=== PATIENT | female | born 1990 | race Two or more races ===

== ENCOUNTER 2017-02-18 21:28 | Inpatient (IN) | payer MEDICAID ==
[2017-02-18] VITALS (22 sets, daily range): BP systolic 147–161; BP diastolic 83–94; PULSE 71–95; RESP 15
[~2017-02-18] VITALS: Ht 154.9 cm; Wt 76.0 kg
[2017-02-18] MEDS ORDERED: LACTATED RINGER'S 1000 ML INJ 1,000 ML IV PRN (22:08)
[2017-02-18] MEDS ORDERED: LACTATED RINGER'S 1000 ML INJ 1,000 ML IV SCH (22:08)
--- NOTE | 2017-02-18 22:08 | PD ---
HPI Chief Complaint Pt is a 26 yo who presents to ER c/o elevated BPs. Pt is 38 weeks and 5 days with EDC 02-27-2017 Date Seen: Feb 18, 2017 Time Seen: 22:00 Travel History International Travel<30 Days: No Contact w/Intl Traveler<30Days: No Known Affected Area: No History of Present Illness HPI Patient is a 26 yo who presents to the OB ED with c/o elevated BP. Pt is 38 weeks and 5 days based on EDC 02-27-2017. Pt receives care in [place] but last visit was 3 weeks and has been in [place] since then. Per patient, there were no concerns at that last visit. Pt states that she was shopping and decided to check her BP at the [employer] and noted systolic pressures of 150 and then 160. She has been asymptomatic the whole time, and denies headaches, vision changes or RUQ pain. She presented to the Main ER and BP was 160/100, and patient was transferred here. BP here was 150/96. We plan admission to Labor and Delivery. Previous was delivered at 34 weeks. pt states she was treated for Chlamydia this with negative SAPPHIRE. She reports active movements. no vaginal bleeding or leaking DTRs are 1-2 + and no ankle clonus. Weeks Gestation: 38 Para: 1 : 2 History Past Medical History Narrative Medical ANEMIA Medical History: Denies Significant Hx Obstetric History Obstetric History delivery at 34 weeks 2015 Past Surgical History Surgical History: No Previous Surgery Family History Family History: Negative Social History Alcohol Use: No Tobacco Use: No (quit smoking at onset of , previously 10 cigarettes/ day) Substance Abuse: No Allergies-Medications (Allergen,Severity, Reaction): Coded Allergies: pineapple (Verified Allergy, Unknown, 02/18/17) Home Meds Reported Medications [Iron] No Conflict Check, 1 TAB PO BID 02/18/17 [ Vitamin] No Conflict Check, 1 TAB PO DAILY 02/18/17 Docusate Sodium (Colace) 100 Mg Capsule, 1 CAP PO DAILY 02/18/17 Physical Exam Narrative GENERAL: Well-nourished, well-developed patient. SKIN: Warm and dry. HEAD: Normocephalic and atraumatic. EYES: No scleral icterus. No injection or drainage. ENT: No nasal drainage noted. Mucous membranes pink. Airway patent. NECK: Supple, trachea midline. No JVD. CARDIOVASCULAR: Regular rate and rhythm without murmurs, gallops, or rubs. RESPIRATORY: Breath sounds equal bilaterally. No accessory muscle use. BREASTS: Bilateral exam showed no masses , no retractions, no nipple discharge. ABDOMEN/GI: Abdomen soft, non-tender, bowel sounds present, no rebound, no guarding Gravid to [38] weeks size Fundal Height: [38] GENITOURINARY: External Genitalia: intact and normal in appearance BUS glands: [wnl] Cervix: [soft, midline] Dilatation: [1-2cm] Effacement: [80%] Station: [-2] Presentation: [vertex] Membranes: [intact] Uterine Contractions: [irregular] FHT's: Category: [1] Baseline: [120s] Reactive: [-] Variability: [moderate] Decels: [noneDTRs at patella 1-2, no ankle clonus] EXTREMITIES: No cyanosis or edema. BACK: Nontender without obvious deformity. No CVA tenderness. NEUROLOGICAL: Awake and alert. Motor and sensory grossly within normal limits. Five out of 5 muscle strength in all muscle groups. Normal speech. Data Data Vital Signs Reviewed: Yes MDM Plan Admit to L&D 26 yo aat 38 weeks and 5 days. We will check PIH labs. Plan admission for IOL for pre-eclampsia at term. Labetalol 20mg IV x 1 Unknown GBS Diagnosis Diagnosis: Primary Impression: Admission for laboratory examination Additional Impressions: Gestational hypertension 38 weeks gestation of Montez Tay MD Feb 18, 2017 22:08
[2017-02-18] MEDS ORDERED: PENICILLIN G POTASSIUM INJ 5,000,000 UNITS in SODIUM CHLORIDE 0.9% INJ 100 ML IV ONE (22:15)
[2017-02-18] MEDS ORDERED: ONDANSETRON HCL 4 MG/2 ML VIAL IV PUSH PRN (22:15)
[2017-02-18] MEDS ORDERED: SODIUM CHLORIDE 0.9% FLUSH 10 ML FLUSH IV FLUSH PRN (22:15)
[2017-02-18] MEDS ORDERED: MINERAL OIL 10 ML VIAL TOPICAL PRN (22:15)
[2017-02-18] MEDS ORDERED: LIDOCAINE HCL 1% 50 ML VIAL INFIL PRN (22:15)
[2017-02-18] MEDS ORDERED: SODIUM CHLORID 0.9% 500 ML INJ 500 ML IV PRN (22:15)
[2017-02-18] MEDS ORDERED: OXYTOCIN 30 UNITS-500ML PREMIX 500 ML IV ONE (22:15)
[2017-02-18] MEDS ORDERED: LIDOCAINE HCL 1% 50 ML VIAL I-DERMAL PRN (22:15)
[2017-02-18] MEDS ORDERED: SODIUM CHLOR 0.9% 1000 ML INJ 1,000 ML IV PRN (22:28)
[2017-02-18] MEDS ORDERED: Iron PO (22:31)
[2017-02-18] MEDS ORDERED: Prenatal Vitamin PO (22:31)
[2017-02-18] MEDS ORDERED: COLA100C5 PO (22:31)
[2017-02-18] MEDS ORDERED: LABETALOL HCL 100 MG/20 ML VIAL ONE ×2 (22:40→22:42)
[2017-02-18] MEDS: LACTATED RINGER'S 1000 ML INJ 1,000 ML IV SCH (22:45)
[2017-02-18 22:52] LABS: BILIRUBIN, URINE NEG (NEG); BLOOD, URINE NEG (NEG); GLUCOSE,URINE NEG (NEG); HYALINE CAST, URINE 1 /lpf (RARE); KETONE, URINE NEG (NEG); NITRITE,URINE NEG (NEG); SQUAMOUS EPITHELIAL CELL URINE 2 /hpf (0-5); URINE COLOR LIGHT-YELLOW (YELLW/STRAW); URINE LEUKOCYTE ESTERASE LARGE (NEG)
--- NOTE | 2017-02-18 22:53 | HHI.HP ---
HPI Chief Complaint 38 weeks and 5 days IUP Pre-eclampsia Date Seen: Feb 18, 2017 Time Seen: 22:00 Travel History International Travel<30 Days: No Contact w/Intl Traveler<30Days: No Known Affected Area: No History of Present Illness HPI Patient is a 26 yo who presents to the OB ED with c/o elevated BP. Pt is 38 weeks and 5 days based on EDC 02-27-2017. Pt receives care in [place] but last visit was 3 weeks and has been in [place] since then. Per patient, there were no concerns at that last visit. Pt states that she was shopping and decided to check her BP at the [employer] and noted systolic pressures of 150 and then 160. She has been asymptomatic the whole time, and denies headaches, vision changes or RUQ pain. She presented to the Main ER and BP was 160/100, and patient was transferred here. BP here was 150/96. We plan admission to Labor and Delivery. Previous was delivered at 34 weeks. pt states she was treated for Chlamydia this with negative SAPPHIRE. She reports active movements. no vaginal bleeding or leaking DTRs are 1-2 + and no ankle clonus. Weeks Gestation: 38 Para: 1 : 2 History Past Medical History Narrative Medical Anemia Obstetric History Obstetric History delivery at 34 weeks 2015 Past Surgical History Surgical History: No Previous Surgery Family History Family History: Negative Social History Alcohol Use: No Tobacco Use: No (quir smoking at onset of pregmnancy.) Substance Abuse: No Allergies-Medications (Allergen,Severity, Reaction): Coded Allergies: pineapple (Verified Allergy, Unknown, 02/18/17) Home Meds Reported Medications [Iron] No Conflict Check, 1 TAB PO BID 02/18/17 [ Vitamin] No Conflict Check, 1 TAB PO DAILY 02/18/17 Docusate Sodium (Colace) 100 Mg Capsule, 1 CAP PO DAILY 02/18/17 Review of Systems Except as stated in HPI: all other systems reviewed are Neg Physical Exam Narrative GENERAL: Well-nourished, well-developed patient. SKIN: Warm and dry. HEAD: Normocephalic and atraumatic. EYES: No scleral icterus. No injection or drainage. ENT: No nasal drainage noted. Mucous membranes pink. Airway patent. NECK: Supple, trachea midline. No JVD. CARDIOVASCULAR: Regular rate and rhythm without murmurs, gallops, or rubs. RESPIRATORY: Breath sounds equal bilaterally. No accessory muscle use. BREASTS: Bilateral exam showed no masses , no retractions, no nipple discharge. ABDOMEN/GI: Abdomen soft, non-tender, bowel sounds present, no rebound, no guarding Gravid to [38] weeks size Fundal Height: [38] GENITOURINARY: External Genitalia: intact and normal in appearance BUS glands: [wnl] Cervix: [soft, midline] Dilatation: [1-2cm] Effacement: [80%] Station: [-2] Presentation: [vertex] Membranes: [intact] Uterine Contractions: [irregular-] FHT's: Category: [1] Baseline: [120s] Reactive: [-] Variability: [moderate] Decels: [none] EXTREMITIES: No cyanosis or edema. BACK: Nontender without obvious deformity. No CVA tenderness. NEUROLOGICAL: Awake and alert. Motor and sensory grossly within normal limits. Five out of 5 muscle strength in all muscle groups. Normal speech. DTRs 1-2, no ankle clonus Caprini VTE Risk Assessment Caprini VTE Risk Assessment: No/Low Risk (score <= 1) Caprini Risk Assessment Model Point Value = 1 Point Value = 2 Point Value = 3 Point Value = 5 Age 41-60 Minor surgery BMI > 25 kg/m2 Swollen legs Varicose veins or History of unexplained or recurrent spontaneous Oral contraceptives or hormone replacement Sepsis (< 1 month) Serious lung disease, including pneumonia (< 1 month) Abnormal pulmonary function Acute myocardial infarction Congestive heart failure (< 1 month) History of inflammatory bowel disease Medical patient at bed rest Age 61-74 Arthroscopic surgery Major open surgery (> 45 min) Laparoscopic surgery (> 45 min) Malignancy Confined to bed (> 72 hours) Immobilizing plaster cast Central venous access Age >= 75 History of VTE Family history of VTE Factor V Leiden Prothrombin [id number] Lupus anticoagulant Anticardiolipin antibodies Elevated serum homocysteine Heparin-induced thrombocytopenia Other congenital or acquired thrombophilia Stroke (< 1 month) Elective arthroplasty Hip, pelvis, or leg fracture Acute spinal cord injury (< 1 month) Prophylaxis Regimen Total Risk Factor Score Risk Level Prophylaxis Regimen 0-1 Low Early ambulation 2 Moderate Order ONE of the following: *Sequential Compression Device (SCD) *Heparin 5000 units SQ BID 3-4 Higher Order ONE of the following medications: *Heparin 5000 units SQ TID *Enoxaparin/Lovenox 40 mg SQ daily (WT < 150 kg, CrCl > 30 mL/min) *Enoxaparin/Lovenox 30 mg SQ daily (WT < 150 kg, CrCl > 10-29 mL/min) *Enoxaparin/Lovenox 30 mg SQ BID (WT < 150 kg, CrCl > 30 mL/min) AND/OR *Sequential Compression Device (SCD) 5 or more Highest Order ONE of the following medications: *Heparin 5000 units SQ TID (Preferred with Epidurals) *Enoxaparin/Lovenox 40 mg SQ daily (WT < 150 kg, CrCl > 30 mL/min) *Enoxaparin/Lovenox 30 mg SQ daily (WT < 150 kg, CrCl > 10-29 mL/min) *Enoxaparin/Lovenox 30 mg SQ BID (WT < 150 kg, CrCl > 30 mL/min) AND *Sequential Compression Device (SCD) Data Data Vital Signs Reviewed: Yes Orders Orders Admit To Inpatient (02/18/17 ) Code Status (02/18/17 22:08) Vital Signs (Adult) Q5MX4,Q15MX4,Q30MX2,Q1H (02/18/17 22:08) Activity Bed Rest (02/18/17 22:08) Intake + Output Q1H (02/18/17 22:08) Notify Parameters (02/18/17 22:08) Heart CONTINUOUS (02/18/17 22:08) Urinary Catheter Management KIMMIE.Q8H (02/18/17 22:08) ^ Check Deep Tendon Reflexes Q1H (02/18/17 22:08) Diet Liquid (02/19/17 Breakfast) Lactated Ringer's 1000 Ml Inj (Lr 1000 M (02/18/17 22:08) Sodium Chloride 0.9% Flush (Ns Flush) (02/18/17 22:15) Sodium Chloride 0.9% Flush (Ns Flush) (02/19/17 09:00) Cbc No Diff, Includes Plts (02/18/17 22:08) Comprehensive Metabolic Panel (02/18/17 22:08) Uric Acid (02/18/17 22:08) Urinalysis - C+S If Indicated (02/18/17 22:08) Inpatient Certification (02/18/17 ) Rubella Immune Status (02/18/17 22:08) Hepatitis Profile (02/18/17 22:08) Rapid Plasma Regin (Rpr) W Ttr (02/18/17 22:08) Admit To Inpatient (02/18/17 ) Vital Signs (Adult) .Per protocol (02/18/17 22:08) Heart (02/18/17 22:08) Amnioinfusion (02/18/17 22:08) Lactated Ringer's 1000 Ml Inj (Lr 1000 M (02/18/17 22:08) Lactated Ringer's 1000 Ml Inj (Lr 1000 M (02/18/17 22:08) Sodium Chlorid 0.9% 500 Ml Inj (Ns 500 M (02/18/17 22:15) Sodium Chlor 0.9% 1000 Ml Inj (Ns 1000 M (02/18/17 22:28) Lidocaine 1% Inj (50 Ml) (Xylocaine 1% I (02/18/17 22:15) Ondansetron Inj (Zofran Inj) (02/18/17 22:15) Fentanyl Inj (Fentanyl Inj) (02/18/17 22:15) Fentanyl Inj (Fentanyl Inj) (02/18/17 22:15) Penicillin G Potassium Inj (Pfizerpen-G (02/18/17 22:15) Penicillin G Potassium Inj (Pfizerpen-G (02/19/17 03:00) Abo/Rh Blood Type (02/18/17 22:08) Drug Screen, Random Urine (02/18/17 22:08) Type And Screen (02/18/17 22:08) Resp Oxygen Non Rebreathe Mask (02/18/17 ) ^ Epidural / Intrathecal Infus (02/18/17 22:08) Oxytocin 30 Units-500ml Premix (Pitocin (02/18/17 22:15) Lidocaine 1% Inj (50 Ml) (Xylocaine 1% I (02/18/17 22:15) Light Mineral Oil (Muri-Lube Oil) (02/18/17 22:15) Inpatient Certification (02/18/17 ) Group B Strep Pcr (Rapid) (02/18/17 22:08) Protein Creat Ratio, Random Ur (02/18/17 22:08) Ob (2e) Additional Admit Info (02/18/17 22:24) Labetalol Inj (Trandate Inj) (02/18/17 22:40) Labetalol Inj (Trandate Inj) (02/18/17 22:42) Labs Laboratory Tests Test 02/18/17 22:30 Assessment/Plan Assessment and Plan 26 yo G 1 P0101 at 38 weeks and 5 days. Admit to L&D. Gestational HTN, no urine protein. GBS unknown, will start PCN prophylaxis, pending GBS Rapid. Will draw labs. PIH labs pending Will await labs and decide mode of induction. Montez Tay MD Feb 18, 2017 22:52
[2017-02-18 23:01] LABS: HEMATOCRIT 31.4 % (35.0-46.0); HEMOGLOBIN 10.1 GM/DL (11.6-15.3); MEAN CELL VOLUME 85.9 FL (80.0-100.0); MEAN CORPUSCULAR HEMOGLOBIN 27.7 PG (27.0-34.0); MEAN CORPUSCULAR HGB CONC 32.2 % (32.0-36.0); MEAN PLATELET VOLUME 8.5 FL (7.0-11.0); PLATELET COUNT 214 TH/MM3 (150-450); RED BLOOD COUNT 3.66 MIL/MM3 (4.00-5.30); RED CELL DISTRIBUTION WIDTH 17.2 % (11.6-17.2); WHITE BLOOD COUNT 14.1 TH/MM3 (4.0-11.0)
[2017-02-18 23:06] LABS: ALBUMIN 2.8 GM/DL (3.4-5.0); AST (GOT) 15 U/L (15-37); BICARBONATE 24.7 MEQ/L (21.0-32.0); BLOOD UREA NITROGEN 6 MG/DL (7-18); CALCIUM 8.4 MG/DL (8.5-10.1); CHLORIDE 106 MEQ/L (98-107); GLOMERULAR FILTRATION RATE 152 ML/MIN (>89); GLUCOSE,RANDOM 76 MG/DL (74-106); SODIUM (NA) 140 MEQ/L (136-145)
[2017-02-18 23:07] LABS: ALT (GPT) 14 U/L (10-53)
[2017-02-18 23:09] LABS: ALKALINE PHOSPHATASE 121 U/L (45-117); TOTAL BILIRUBIN ADULT 0.2 MG/DL (0.2-1.0); TOTAL PROTEIN 6.5 GM/DL (6.4-8.2)
[2017-02-18] MEDS ORDERED: OXYTOCIN 30 UNITS-500ML PREMIX 500 ML IV SCH (23:45)
[2017-02-19] VITALS (19 sets, daily range): BP systolic 121–149; BP diastolic 62–98; PULSE 80–125; RESP 15–20; TEMP 98.1–98.8; O2SAT 97
[2017-02-19] MEDS: PENICILLIN G POTASSIUM INJ 2,500,000 UNITS in SODIUM CHLORIDE 0.9% INJ 100 ML IV SCH ×5 (03:00→18:38)
[2017-02-19] MEDS ORDERED: LABETALOL HCL 100 MG/20 ML VIAL IV ONE (03:45)
[2017-02-19] MEDS: ACETAMINOPHEN 325 MG TAB PO PRN (03:47)
[2017-02-19] MEDS: LABETALOL HCL 200 MG TAB PO SCH ×3 (06:24→22:11)
[2017-02-19] MEDS: LACTATED RINGER'S 1000 ML INJ 1,000 ML IV SCH ×2 (06:24→14:09)
[2017-02-19] MEDS: SODIUM CHLORIDE 0.9% FLUSH 10 ML FLUSH IV FLUSH SCH (07:35)
--- NOTE | 2017-02-19 08:07 | PD.LABORPN ---
Subjective Subjective Patient rates contractions as 6. Denies headaches or vision changes. Objective Vital Signs Vital Signs Date Time Temp Pulse Resp B/P (MAP) Pulse Ox O2 Delivery O2 Flow Rate FiO2 02/19/17 00:10 81 02/19/17 00:05 80 Objective Pelvic Exam: Cervix: [soft] Dilatation: [4cm] Effacement: [70%] Station: [-2] Presentation: [vertex] Membranes: [ruptured] AROM done 08:00 clear return Uterine Contractions: [q 2 minutes] Pitocin at 10mu/min FHT's: Category: [1] Baseline: [-] Reactive: [-] Variability: [120s] Decels: [none] DTRs at patella 1+. no ankle clonus. Bilateral pedal edema 2+ Weeks Gestation: 38 Gest Age Assessed Date: Feb 18, 2017 Gest Age Assessed Time: 22:00 Pt started active labor?: Yes Active labor start date: Feb 19, 2017 Active labor start time: 02:00 Medical induction of labor?: Yes Medical induction start date: Feb 18, 2017 Medical induction start time: 22:00 Artificial rupture of membrane: Yes Artificial ROM date: Feb 19, 2017 Artifical ROM time: 08:02 Assessment/Plan Assessment and Plan 26 yo at 38 weeks and 1 day. IOL for Gestational HTN PIH all wnl no proteinuria. BP 140-150/80-90s on Labetalol 200mg q 8 hourly. Continue Pitocin per protocol. 2. Unknown GBS Pt on PCN prophylaxis Montez Tay MD Feb 19, 2017 08:07
[2017-02-19] MEDS ORDERED: CALCIUM CARBONATE 500 MG CHEWABLE TAB CHEW ONE (09:00)
[2017-02-19] MEDS ORDERED: MEASLES, MUMPS, RUBELLA VACCINE 0.5 ML VIAL SQ ONE (16:00)
[2017-02-19] MEDS ORDERED: DIPHTH/TETANUS/ACEL PERTUSSIS (BOOSTER) 0.5 ML VIAL/PFS IM ONE (16:00)
[2017-02-19] MEDS ORDERED: fentaNYL 2MCG-BUPIV 0.125% INJ 100 ML ONE (16:23)
[2017-02-19] MEDS ORDERED: ePHEDrine/NS 25 MG/5 ML SYRINGE ONE (16:23)
[2017-02-19] MEDS ORDERED: LIDOCAINE HCL 1% 20 ML VIAL ONE (16:50)
[2017-02-19] MEDS ORDERED: MISOPROSTOL 200 MCG TAB ONE (17:23)
--- NOTE | 2017-02-19 17:37 | PD.OB.DELI ---
Weeks gestation: 38 Gest age assessed date: Feb 18, 2017 Gest age assessed time: 22:00 Pt started active labor?: Yes Active labor start date: Feb 19, 2017 Active labor start time: 02:00 Medical induction of labor?: Yes Medical induction start date: Feb 18, 2017 Medical induction start time: 22:00 Artificial rupture of membrane: Yes Artificial ROM date: Feb 19, 2017 Artifical ROM time: 08:02 Anesthesia: Lidocaine pudendal block, Lidocaine local to perineum Episiotomy: None Vaginal Delivery: Normal Presentation: Occiput anterior Nuchal Cord: None Delayed cord clamping (45 sec): Yes Infant: Male Delivery date: Feb 19, 2017 Delivery time: 16:47 One Minute : 8 Five Minute : 8 Weight: 3600 Placenta: Manual removal, Uterus explored + Estimated blood loss: 400 Additional Information prolonged 3 rd stage adherrent placenta manually extracted completely removed James Garcia II, MD Feb 19, 2017 17:37
[2017-02-19] MEDS ORDERED: OXYTOCIN 30 UNITS-500ML PREMIX 500 ML IV SCH (17:45)
[2017-02-19] MEDS ORDERED: WITCH HAZEL 50%/GLYCERIN 12.5% 40 PAD JAR TOPICAL PRN (17:45)
[2017-02-19] MEDS ORDERED: ACETAMINOPHEN 325 MG TAB PO PRN (17:45)
[2017-02-19] MEDS ORDERED: ZOLPIDEM TARTRATE 5 MG TAB PO PRN (17:45)
[2017-02-19] MEDS ORDERED: DOCUSATE SODIUM 50 MG/SENNA 8.6 MG TAB PO PRN (17:45)
[2017-02-19] MEDS ORDERED: ONDANSETRON ODT 4 MG TAB PO PRN (17:45)
[2017-02-19] MEDS ORDERED: oxyCODONE/ACETAMINOPHEN 5 MG/325 MG TAB PO PRN (17:45)
[2017-02-19] MEDS ORDERED: ALUMINUM/MAGNESIUM/SIMETH 30 ML CUP PO PRN (17:45)
[2017-02-19] MEDS ORDERED: BENZOCAINE 20% TOPICAL SPRAY 60 ML CAN TOPICAL PRN (17:45)
[2017-02-19] MEDS ORDERED: SODIUM CHLORIDE 0.9% FLUSH 10 ML FLUSH IV FLUSH PRN (17:45)
[2017-02-19] MEDS ORDERED: MISOPROSTOL 200 MCG TAB RECTAL ONE (18:30)
[2017-02-19] MEDS ORDERED: SODIUM CHLORIDE 0.9% FLUSH 10 ML FLUSH IV FLUSH SCH (21:00)
[2017-02-20] MEDS: IBUPROFEN 800 MG TAB PO PRN (00:23)
[2017-02-20] MEDS: LABETALOL HCL 200 MG TAB PO SCH ×2 (05:53→17:22)
[2017-02-20 07:00] LABS: HEMATOCRIT 25.1 % (35.0-46.0); HEMOGLOBIN 8.5 GM/DL (11.6-15.3); MEAN CELL VOLUME 85.8 FL (80.0-100.0); MEAN CORPUSCULAR HGB CONC 33.8 % (32.0-36.0); MEAN PLATELET VOLUME 8.6 FL (7.0-11.0); PLATELET COUNT 153 TH/MM3 (150-450); RED BLOOD COUNT 2.92 MIL/MM3 (4.00-5.30); RED CELL DISTRIBUTION WIDTH 17.3 % (11.6-17.2); WHITE BLOOD COUNT 20.7 TH/MM3 (4.0-11.0)
--- NOTE | 2017-02-20 08:30 | HHI.OB ---
Subjective Post Day: 1 Remarks Pt seen and examined this morning. day # 1 after with prolonged 3rd stage of labor, manual placental extraction, and post- hemorrhage. CBC showing Hgb 10.1 -> 8.5. Patient asymptomatic. AFVSS overnight. SBP 140s-150s on labetalol 200mg TID. Decreased lochia. Denies dysuria. No breast tenderness. She is feeding the baby via breast. Appetite good. No nausea or vomiting. Ambulating well. Denies calf pain or shortness of breath. Otherwise, she is doing well this morning and has no other concerns. Objective Vitals/I&O Vital Signs Date Time Temp Pulse Resp B/P (MAP) Pulse Ox O2 Delivery O2 Flow Rate FiO2 02/19/17 20:50 149/89 (109) 02/19/17 20:50 98.4 82 18 97 02/19/17 20:05 98.8 20 02/19/17 20:00 125 140/86 (104) 02/19/17 19:30 90 145/85 (105) 02/19/17 19:05 18 02/19/17 19:00 83 140/91 (107) 02/19/17 18:46 112 143/97 (112) 02/19/17 18:35 18 02/19/17 18:30 89 140/88 (105) 02/19/17 18:20 98.6 18 02/19/17 18:15 86 139/88 (105) 02/19/17 18:05 18 02/19/17 18:00 111 136/68 (90) 02/19/17 17:50 18 02/19/17 17:45 95 121/62 (81) 02/19/17 17:30 104 136/98 (111) Objective Remarks GENERAL: Well-nourished, well-developed patient. CARDIOVASCULAR: Regular rate and rhythm without murmurs, gallops, or rubs. RESPIRATORY: Breath sounds equal bilaterally. No accessory muscle use. ABDOMEN/GI: Abdomen soft, non-tender. Fundus: Firm, non-tender at umbilicus. GENITOURINARY: Light to moderate bleeding. EXTREMITIES: No cyanosis or edema, non-tender, without signs of DVT. Medications and IVs Current Medications Medications (Trade) Dose Ordered Sig/Cherise Route Start Time Stop Time Status Last Admin (NS Flush) 2 ml UNSCH PRN IV FLUSH 02/18/17 22:15 (NS Flush) 2 ml BID IV FLUSH 02/19/17 09:00 Lactated Ringer's 1,000 ml @ 125 mls/hr Q8H IV 02/18/17 22:08 02/19/17 14:09 Lactated Ringer's 1,000 ml @ 3,000 mls/hr Q20M PRN IV 02/18/17 22:08 Sodium Chloride 500 ml @ 1,000 mls/hr ONCE PRN IV 02/18/17 22:15 02/20/17 22:14 Sodium Chloride 1,000 ml @ 100 mls/hr Q10H PRN IV 02/18/17 22:28 (Xylocaine 1% Inj (50 ml)) 0.1 ml UNSCH X1 PRN I-DERMAL 02/18/17 22:15 02/21/17 22:14 (Zofran Inj) 4 mg Q6H PRN IV PUSH 02/18/17 22:15 (fentaNYL INJ) 50 mcg Q1H PRN IV PUSH 02/18/17 22:15 (fentaNYL INJ) 100 mcg Q1H PRN IV PUSH 02/18/17 22:15 02/19/17 17:18 Penicillin G Potassium 8134866 units/Sodium Chloride 100 ml @ 200 mls/hr Q4H IV 02/19/17 03:00 02/19/17 15:03 (Xylocaine 1% Inj (50 ml)) 10 ml UNSCH X1 PRN INFIL 02/18/17 22:15 02/20/17 22:14 (Muri-Lube Oil) 10 ml UNSCH PRN TOPICAL 02/18/17 22:15 Oxytocin 500 ml @ 0 mls/hr TITRATE IV 02/18/17 23:45 02/19/17 00:33 (Tylenol) 650 mg Q4H PRN PO 02/19/17 03:45 02/19/17 03:47 (Trandate) 200 mg Q8HR PO 02/19/17 06:00 02/20/17 05:53 (NS Flush) 2 ml BID IV FLUSH 02/19/17 21:00 (NS Flush) 2 ml UNSCH PRN IV FLUSH 02/19/17 17:45 (Tylenol) 650 mg Q4H PRN PO 02/19/17 17:45 (Motrin) 800 mg Q8H PRN PO 02/19/17 17:45 02/20/17 00:23 (Percocet 5-325 Mg) 1 tab Q4H PRN PO 02/19/17 17:45 (Americaine 20% Top Spr) 1 spray Q4H PRN TOPICAL 02/19/17 17:45 (Tucks Pads) 1 applic QID PRN TOPICAL 02/19/17 17:45 (Natasha-Colace) 2 tab Q12H PRN PO 02/19/17 17:45 (Ambien) 5 mg HS PRN PO 02/19/17 17:45 (Mag-Al Plus Susp Liq) 15 ml Q8H PRN PO 02/19/17 17:45 (Zofran Odt) 4 mg Q6H PRN PO 02/19/17 17:45 (Flu (Quadrivalent) Vaccine Inj) 0.5 ml ONCE ONCE IM 02/21/17 10:00 02/21/17 10:01 Assessment/Plan Assessment and Plan 26 y/o female who is PPD# 1b s/p with prolonged 3rd stage of labor. -Continue routine care. -Post- hemorrhage noted. Hgb 10.1--> 8.5, pt asymptomatic. -Percocet and Motrin PRN pain. -Encouraged OOB. Advised pelvic rest for 6 wks. Will need a f/u appt. in 1 wk for incision check. -Re: ctrl, will discuss tomorrow. -Anticipate discharge tomorrow. PIH: FOLLOW UP WITHIN ONE WEEK DW Dr. Jose Fernandez,Belinda Campos MD Feb 20, 2017 08:30
[2017-02-20 17:20] VITALS: BP 155/94; PULSE 80; RESP 18; TEMP 98.2
[2017-02-20 20:00] VITALS: BP 144/90; PULSE 73; RESP 18; TEMP 98.8
[2017-02-20] MEDS: SODIUM CHLORIDE 0.9% FLUSH 10 ML FLUSH IV FLUSH SCH (21:07)
[2017-02-20] MEDS: PENICILLIN G POTASSIUM INJ 2,500,000 UNITS in SODIUM CHLORIDE 0.9% INJ 100 ML IV SCH (23:00)
[2017-02-21 03:00] VITALS: BP 150/93; PULSE 79; RESP 20; TEMP 98.3
[2017-02-21] MEDS: PENICILLIN G POTASSIUM INJ 2,500,000 UNITS in SODIUM CHLORIDE 0.9% INJ 100 ML IV SCH (03:00)
[2017-02-21] MEDS: LABETALOL HCL 200 MG TAB PO SCH ×2 (03:06→09:36)
[2017-02-21] MEDS: IBUPROFEN 800 MG TAB PO PRN ×2 (03:21→11:05)
[2017-02-21] MEDS: LACTATED RINGER'S 1000 ML INJ 1,000 ML IV SCH ×2 (05:56→05:57)
--- NOTE | 2017-02-21 07:31 | HHI.OB ---
Subjective Post Day: 2 Remarks Pt seen and examined this morning. day # 2 after with prolonged 3rd stage of labor, manual placental extraction, and post- hemorrhage. CBC yesterday showing Hgb 10.1 -> 8.5. Patient asymptomatic. AFVSS overnight. SBP 140s-150s on labetalol 200mg TID. Decreased lochia. Denies dysuria. No breast tenderness. She is feeding the baby via breast. Appetite good. No nausea or vomiting. Ambulating well. Denies calf pain or shortness of breath. Otherwise , she is doing well this morning and has no other concerns. Objective Vitals/I&O Vital Signs Date Time Temp Pulse Resp B/P (MAP) Pulse Ox O2 Delivery O2 Flow Rate FiO2 02/21/17 03:00 98.3 79 20 150/93 (112) 02/20/17 20:00 98.8 73 18 144/90 (108) 02/20/17 17:20 80 18 155/94 (114) 02/20/17 17:20 98.2 Objective Remarks GENERAL: Well-nourished, well-developed patient. CARDIOVASCULAR: Regular rate and rhythm without murmurs, gallops, or rubs. RESPIRATORY: Breath sounds equal bilaterally. No accessory muscle use. ABDOMEN/GI: Abdomen soft, non-tender. Fundus: Firm, non-tender at umbilicus. GENITOURINARY: Light to moderate bleeding. EXTREMITIES: No cyanosis or edema, non-tender, without signs of DVT. Medications and IVs Current Medications Medications (Trade) Dose Ordered Sig/Cherise Route Start Time Stop Time Status Last Admin (NS Flush) 2 ml UNSCH PRN IV FLUSH 02/18/17 22:15 (NS Flush) 2 ml BID IV FLUSH 02/19/17 09:00 02/20/17 21:07 Lactated Ringer's 1,000 ml @ 125 mls/hr Q8H IV 02/18/17 22:08 02/19/17 14:09 Lactated Ringer's 1,000 ml @ 3,000 mls/hr Q20M PRN IV 02/18/17 22:08 Sodium Chloride 1,000 ml @ 100 mls/hr Q10H PRN IV 02/18/17 22:28 (Xylocaine 1% Inj (50 ml)) 0.1 ml UNSCH X1 PRN I-DERMAL 02/18/17 22:15 02/21/17 22:14 (Zofran Inj) 4 mg Q6H PRN IV PUSH 02/18/17 22:15 (fentaNYL INJ) 50 mcg Q1H PRN IV PUSH 02/18/17 22:15 (fentaNYL INJ) 100 mcg Q1H PRN IV PUSH 02/18/17 22:15 02/19/17 17:18 Penicillin G Potassium [id number] units/Sodium Chloride 100 ml @ 200 mls/hr Q4H IV 02/19/17 03:00 02/19/17 15:03 (Muri-Lube Oil) 10 ml UNSCH PRN TOPICAL 02/18/17 22:15 Oxytocin 500 ml @ 0 mls/hr TITRATE IV 02/18/17 23:45 02/19/17 00:33 (Tylenol) 650 mg Q4H PRN PO 02/19/17 03:45 02/19/17 03:47 (NS Flush) 2 ml BID IV FLUSH 02/19/17 21:00 (NS Flush) 2 ml UNSCH PRN IV FLUSH 02/19/17 17:45 (Tylenol) 650 mg Q4H PRN PO 02/19/17 17:45 (Motrin) 800 mg Q8H PRN PO 02/19/17 17:45 02/21/17 03:21 (Percocet 5-325 Mg) 1 tab Q4H PRN PO 02/19/17 17:45 (Americaine 20% Top Spr) 1 spray Q4H PRN TOPICAL 02/19/17 17:45 02/20/17 21:05 (Tucks Pads) 1 applic QID PRN TOPICAL 02/19/17 17:45 02/20/17 21:05 (Natasha-Colace) 2 tab Q12H PRN PO 02/19/17 17:45 (Ambien) 5 mg HS PRN PO 02/19/17 17:45 (Mag-Al Plus Susp Liq) 15 ml Q8H PRN PO 02/19/17 17:45 (Zofran Odt) 4 mg Q6H PRN PO 02/19/17 17:45 (Flu (Quadrivalent) Vaccine Inj) 0.5 ml ONCE ONCE IM 02/21/17 10:00 02/21/17 10:01 (Trandate) 200 mg Q8H PO 02/21/17 02:00 02/21/17 03:06 Assessment/Plan Assessment and Plan 26 y/o female who is PPD# 2 s/p with prolonged 3rd stage of labor. -Continue routine care. -Post- hemorrhage noted. Hgb 10.1--> 8.5, pt asymptomatic. -Percocet and Motrin PRN pain. -Encouraged OOB. Advised pelvic rest for 6 wks. Will need a f/u appt. in 1 wk for incision check. -Re: ctrl, none desired. -Anticipate discharge today. induced HTN -Labetolol 200mg TID -BPs 140s-150s/60s-90s -PIH workup negative for organ dysfx PIH: FOLLOW UP WITHIN ONE WEEK IFEANYI Fernandez,Belinda Campos MD Feb 21, 2017 07:31
[2017-02-21 07:40] VITALS: BP 152/97; PULSE 97; RESP 18; TEMP 98.2
[2017-02-21] MEDS ORDERED: LABE200T2 PO (07:56)
[2017-02-21] MEDS ORDERED: IBUP1TAB7 PO (07:56)
--- NOTE | 2017-02-21 07:57 | HHI.DCPOC ---
Discharge Care Plan Diagnosis: (1) Vaginal delivery (2) Pre-eclampsia Report Symptoms to Your Doctor -Temperature above 100.5 degrees -Redness, of incision or excessive or foul smelling drainage -Unusual pain or calf pain -Increased vaginal bleeding -Painful or difficulty urinating -Feelings of extreme sadness or anxiety after 2 weeks Goals to Promote Your Health * To prevent worsening of your condition and complications * To maintain your health at the optimal level Directions to Meet Your Goals Take your medications as prescribed Follow your dietary instruction Follow activity as directed Ensure plenty of rest for recovery Drink fluids for hydration Keep your appointments as scheduled Take your immunizations and boosters as scheduled If your symptoms worsen call your PCP, if no PCP go to Urgent Care Center or Emergency Room Smoking is Dangerous to Your Health. Avoid second hand smoke Call the 24-hour crisis hotline for domestic abuse at Belinda Fernandez MD Feb 21, 2017 07:57
[2017-02-21] MEDS ORDERED: INFLUENZA VIRUS VACCINE (QUADRIVALENT) 0.5 ML SYR IM ONE (10:00)
[2017-02-21] MEDS: ACETAMINOPHEN 325 MG TAB PO PRN (11:04)
[2017-02-21 11:13] LABS: HEPATITIS A AB IGM NEGATIVE (NEGATIVE); HEPATITIS B CORE AB IGM NEGATIVE (NEGATIVE); HEPATITIS B SURFACE ANTIGEN NEGATIVE (NEGATIVE); HEPATITIS C AB IgG NEGATIVE (NEGATIVE)
[2017-02-21 11:15] VITALS: BP 164/101
[2017-02-21 11:42] VITALS: BP 149/96
== END 2017-02-21 14:24 | disposition home or self-care (01) | DRG 767 ==
LOC: HOBED 21:28 → H2EB 22:27 → H1EA 02-19 20:09
PROVIDERS: ADMIT Obstetrics & Gynecology; ATTEND Obstetrics & Gynecology
PROC: 3E033VJ Introduction of Other Hormone into Peripheral Vein, Percutaneous Approach (ICD-10-PCS; 2017-02-18)
PROC: 10E0XZZ Delivery of Products of Conception, External Approach (ICD-10-PCS; principal; 2017-02-19)
PROC: 10D17Z9 Manual Extraction of Products of Conception, Retained, Via Natural or Artificial Opening (ICD-10-PCS; 2017-02-19)
PROC: 10907ZC Drainage of Amniotic Fluid, Therapeutic from Products of Conception, Via Natural or Artificial Opening (ICD-10-PCS; 2017-02-19)
DX: O13.4 Gestational [pregnancy-induced] hypertension without significant proteinuria, complicating childbirth (principal); O63.9 Long labor, unspecified; Z37.0 Single live birth; O72.0 Third-stage hemorrhage; Z3A.38 38 weeks gestation of pregnancy
CPT/HCPCS: 59025; 80053; 80074; 80307; 81001; 82570; 84156; 84550; 85027; 86592; 86703; 86762; 86850; 86900; 86901; 87081; 87086; 87150; 87491; 87591; 90715; J2540; J2590; J3010; J7120